=== PATIENT | male | born 1985 | race Caucasian/White ===

== ENCOUNTER 2018-01-20 00:56 | Emergency (ER) | payer OTHER ==
[~2018-01-20] VITALS: Ht 167.6 cm; Wt 77.1 kg
[2018-01-20 01:05] VITALS: BP 139/70
--- NOTE | 2018-01-20 01:05 | NUR ---
to bed # 11 ambulatory
--- NOTE | 2018-01-20 01:25 | NUR ---
PATIENT LEFT WITHOUT BEING SEEN BY DR. CLAY. NO FURTHER CARE PROVIDED FOR PATIENT.
== END 2018-01-20 01:25 | disposition left against medical advice (07) ==
LOC: MED 00:56
DX: L29.9 Pruritus, unspecified (principal); Z53.21 Procedure and treatment not carried out due to patient leaving prior to being seen by health care provider

== ENCOUNTER 2020-10-14 18:29 | Emergency (ER) | payer OTHER ==
[~2020-10-14] VITALS: Ht 175.3 cm; Wt 95.3 kg
[2020-10-14 18:42] VITALS: BP 158/104
--- NOTE | 2020-10-14 18:45 | NUR ---
PT AMBULATED TO BED 11.
--- NOTE | 2020-10-14 18:52 | NUR ---
35 Y/O MALE C/O LEFT SIDE TOOTHPAIN 02/19 X1DAY DESCRIBES ACHING NON-RADIATING. PT STATES +N/V, +FEVER/CHILLS. PT HAS NOT SEEN DENTIST. DENIES PMH NKA
--- NOTE | 2020-10-14 19:23 | NUR ---
Report received from LEYDI Delgado for continuation of care.
--- NOTE | 2020-10-14 19:23 | NUR ---
Gave report to LEYDI Alvarez, transfer of care at this time.
[2020-10-14] MEDS ORDERED: CLINDAMYCIN 150 MG CAP PO ONE (19:50)
[2020-10-14] MEDS ORDERED: IBUPROFEN 600 MG TAB PO ONE (19:50)
[2020-10-14] MEDS ORDERED: HYDROcodone/APAP 5/325 MG 1 TAB TAB PO ONE (19:50)
[2020-10-14] MEDS ORDERED: CLINDAMYCIN 150 MG CAP ONE (19:59)
[2020-10-14] MEDS ORDERED: IBUP-2213 PO (20:52)
[2020-10-14] MEDS ORDERED: CLIN300C7 PO (20:52)
[2020-10-14] MEDS ORDERED: ACET-9525 PO (20:52)
[2020-10-14 21:05] VITALS: BP 150/99
--- NOTE | 2020-10-14 21:05 | NUR ---
Patient discharged with v/s stable. Written and verbal after care instructions given and explained. Patient alert, oriented and verbalized understanding of instructions. Ambulatory with steady gait. All questions addressed prior to discharge. ID band removed. Patient advised to follow up with PMD. Rx of clindamycin, ibuprofen & [place] given. Patient educated on indication of medication including possible reaction and side effects. Opportunity to ask questions provided and answered. Tried calling for transportation from pt's mother , Ania at number provided by pt but no response at this time.
== END 2020-10-14 21:05 | disposition home or self-care (01) ==
LOC: MED 18:29
DX: K04.7 Periapical abscess without sinus (principal); K08.56 Poor aesthetic of existing restoration of tooth; Z79.899 Other long term (current) drug therapy
CPT/HCPCS: 99284

== ENCOUNTER 2022-12-26 16:08 | Emergency (ER) | payer MEDICAID ==
[~2022-12-26] VITALS: Ht 167.6 cm; Wt 99.8 kg
[~2022-12-26 16:08] MED LIST: ACET-9525 PO; AMOX1TAB8 PO; BENZ200C4 PO; CLIN300C73 PO; IBUP-2213 PO
[2022-12-26 16:32] VITALS: BP 136/97
--- NOTE | 2022-12-26 16:37 | NUR ---
pt to lobby by wheel chair.
[2022-12-26] MEDS ORDERED: IBUPROFEN 600 MG TAB PO ONE (16:45)
[2022-12-26] MEDS ORDERED: IBUP-2213 PO (18:18)
[2022-12-26] MEDS ORDERED: IBUPROFEN 600 MG TAB ONE (18:40)
--- NOTE | 2022-12-26 18:45 | NUR ---
Patient discharged with v/s stable. Written and verbal after care instructions FOR [employer] given and explained. Patient alert, oriented and verbalized understanding of instructions. Wheel Chair Assisted with to car. All questions addressed prior to discharge. ID band removed. Patient advised to follow up with PMD. Rx of IBURPROFEN given. Opportunity to ask questions provided and answered.
== END 2022-12-26 18:45 | disposition home or self-care (01) ==
LOC: MED 16:29
DX: S83.8X2A Sprain of other specified parts of left knee, initial encounter (principal); R03.0 Elevated blood-pressure reading, without diagnosis of hypertension; Z79.899 Other long term (current) drug therapy; X58.XXXA Exposure to other specified factors, initial encounter; Y93.89 Activity, other specified; Y92.89 Other specified places as the place of occurrence of the external cause; Y99.8 Other external cause status
CPT/HCPCS: 29505; 73562; 99283

== ENCOUNTER 2023-05-30 13:07 | Emergency (ER) | payer MEDICAID ==
[~2023-05-30] VITALS: Ht 167.6 cm; Wt 114.1 kg
[2023-05-30 13:22] VITALS: BP 122/89; PULSE 110; RESP 21; TEMP 97.8; O2SAT 98
[2023-05-30] MEDS ORDERED: KEN.1C TP (14:11)
[2023-05-30] MEDS ORDERED: [UNRECOGNIZED DRUG - CODE] TP (14:11)
[2023-05-30 14:26] VITALS: BP 132/76; PULSE 82; RESP 16; TEMP 98; O2SAT 99
== END 2023-05-30 14:27 | disposition home or self-care (01) ==
LOC: MED 13:07
DX: L40.9 Psoriasis, unspecified (principal); Z79.899 Other long term (current) drug therapy; Z76.0 Encounter for issue of repeat prescription
CPT/HCPCS: 99283

== ENCOUNTER 2024-02-29 12:16 | Emergency (ER) | payer MEDICAID ==
[~2024-02-29] VITALS: Ht 170.2 cm; Wt 104.3 kg
[~2024-02-29 12:16] MED LIST changes: +KEN.1C TP; +[UNRECOGNIZED DRUG - CODE] TP
[2024-02-29 12:33] VITALS: BP 144/110; PULSE 110; RESP 18; TEMP 97.5; O2SAT 98
[2024-02-29] MEDS ORDERED: CEPH-588 PO (13:32)
[2024-02-29] MEDS ORDERED: IBUP-2213 PO (13:32)
[2024-02-29] MEDS: IBUPROFEN 600 MG TAB PO ONE (13:39)
[2024-03-02] MEDS ORDERED: CEPH-588 PO (22:41)
[2024-03-02] MEDS ORDERED: IBUP-2213 PO (22:41)
== END 2024-02-29 14:07 | disposition home or self-care (01) ==
LOC: MED 12:16
DX: L02.511 Cutaneous abscess of right hand (principal); L03.011 Cellulitis of right finger
CPT/HCPCS: 26010; 99283

== ENCOUNTER 2024-04-19 18:27 | Emergency (ER) | payer MEDICAID ==
[~2024-04-19] VITALS: Ht 167.6 cm; Wt 111.6 kg
[~2024-04-19 18:27] MED LIST changes: +CEPH-588 PO
[2024-04-19 19:03] VITALS: BP 145/93; PULSE 120; RESP 16; TEMP 98; O2SAT 97
[2024-04-19 19:49] VITALS: BP 145/93; PULSE 118; RESP 16; TEMP 98
[2024-04-19 20:25] VITALS: O2SAT 97
[2024-04-19] MEDS ORDERED: SULF-59 PO (21:19)
== END 2024-04-19 21:27 | disposition home or self-care (01) ==
LOC: MED 18:27
DX: L03.113 Cellulitis of right upper limb (principal); F15.90 Other stimulant use, unspecified, uncomplicated; Z79.899 Other long term (current) drug therapy
CPT/HCPCS: 99284